=== PATIENT | male | born 1960 | race American Indian/Alaskan Native ===

== ENCOUNTER 2016-11-12 12:29 | Emergency (ER) | payer MEDICAID, OTHER ==
[2016-11-12 13:45] LABS: Basophils % (Auto) 0.9 % (0.0-1.8); Eosinophils % (Auto) 1.6 % (0.0-4.3); Hemoglobin 16.3 gm/dl (11.8-15.2); Mean Corpuscular HGB Conc 34 % (32-34); Mean Corpuscular Hemoglobin 30 pg (28-32); Mean Corpuscular Volume 87 fl (84-94); Red Cell Distribution Width 13.3 % (13.2-15.2); White Blood Count 7.8 K/mm3 (4.5-11.0)
[2016-11-12] MEDS ORDERED: ATIVAN ONE (13:45)
[2016-11-12] MEDS ORDERED: ATIVAN IV ONE (13:45)
[2016-11-12 13:54] LABS: Platelet Count 214 K/mm3 (140-440)
--- NOTE | 2016-11-12 14:13 | Cat Scan Report ---
CT HEAD WITHOUT CONTRAST: HISTORY: Altered mental. Serial contiguous axial images were obtained through the cranium. Intravenous contrast material was not administered. The ventricles are normal in size and appearance. There is no mass effect or midline shift. Chronic lacunar infarcts in the right ventura and left basal ganglia are unchanged since 11/13/15. No mass lesion is seen. No evidence for hemorrhage. The mastoid air cells and visualized portions of the sinuses are normal. IMPRESSION: No acute intracranial process. No change since 11/13/15.
[2016-11-12 14:23] LABS: Alanine Aminotransferase 37 units/L (7-56); Albumin 4.2 g/dL (3.9-5); Albumin/Globulin Ratio 1.3 %; Alkaline Phosphatase 64 units/L (35-129); Anion Gap 20 mmol/L; BUN/Creatinine Ratio 12.14; Blood Urea Nitrogen 17 mg/dL (9-20); Calcium 9.3 mg/dL (8.4-10.2); Carbon Dioxide 21 mmol/L (22-30); Chloride 99.7 mmol/L (98-107); Glucose 207 mg/dL (75-100); Potassium 3.6 mmol/L (3.6-5.0); Sodium 137 mmol/L (137-145); Total Protein 7.4 g/dL (6.3-8.2)
[2016-11-12 14:29] LABS: Urine Drugs of Abuse Note Disclamer
--- NOTE | 2016-11-12 14:35 | Emergency Department Report ---
ED Altered Mental Status HPI - General Chief Complaint: Altered Mental Status Stated Complaint: AMS Time Seen by Provider: 11/12/16 13:48 Source: EMS Mode of arrival: Stretcher Limitations: Altered Mental Status - History of Present Illness Initial Comments: 56-year-old male in an adult daycare program sent in for altered mental status. On arrival had a seizure in the emergency department. Patient has a known history of seizures and is on Keppra and Topamax. Currently denies any symptoms. States he feels fine. He does have mild headache. No fevers chills nausea vomiting. MD Complaint: altered mental status, confusion, decreased responsiveness -: Sudden Severity: moderate Consistency of Symptoms: waxing and waning Associated Symptoms: denies: denies other symptoms, chest pain, cough, malaise, nausea/vomiting - Related Data Home Medications Medication Instructions Recorded Confirmed Last Taken Albuterol Sulfate [Proventil HFA] 1 - 2 puff IH Q4H PRN 06/30/14 11/13/15 Folic Acid [Folvite] 1 mg PO QDAY 06/30/14 11/13/15 07/30/15 Magnesium Oxide [Mag-Ox] 400 mg PO QDAY 06/30/14 11/13/15 07/30/15 Pravastatin Sodium [Pravastatin] 10 mg PO QHS 06/30/14 11/13/15 07/30/15 Quetiapine Fumarate [SEROquel] 25 mg PO QHS 06/30/14 11/13/15 07/30/15 Topiramate [Topamax] 25 mg PO BID 06/30/14 11/13/15 07/30/15 amLODIPine [Norvasc] 5 mg PO DAILY 06/30/14 11/13/15 07/30/15 Aspirin [Aspirin BABY CHEW TAB] 81 mg PO QDAY 07/31/15 11/13/15 07/30/15 Carvedilol [Coreg] 6.25 mg PO BID 07/31/15 11/13/15 07/30/15 Donepezil [Aricept] 5 mg PO QHS 07/31/15 11/13/15 07/30/15 Ranitidine HCl [Zantac 150 MG TAB] 150 mg PO QDAY 07/31/15 11/13/15 07/30/15 glipiZIDE [Glucotrol] 5 mg PO BID 07/31/15 11/13/15 07/30/15 levETIRAcetam [Keppra TAB] 1,000 mg PO BID 07/31/15 11/13/15 07/30/15 Hydrochlorothiazide [HCTZ] 25 mg PO QDAY 11/13/15 11/13/15 Unknown Previous Rx's Medication Instructions Recorded Last Taken Type Ibuprofen [Motrin] 600 mg PO Q8H PRN #10 tablet 01/02/16 Unknown Rx Allergies Allergy/AdvReac Type Severity Reaction Status Date / Time No Known Allergies Allergy Verified 11/13/15 11:59 ED Review of Systems ROS: Stated complaint: AMS Other details as noted in HPI Comment: All other systems reviewed and negative Constitutional: denies: chills, fever Eyes: denies: eye pain, eye discharge, vision change ENT: denies: ear pain, throat pain Respiratory: denies: cough, shortness of breath, wheezing Cardiovascular: denies: chest pain, palpitations Endocrine: no symptoms reported Gastrointestinal: denies: abdominal pain, nausea, diarrhea Genitourinary: denies: urgency, dysuria Musculoskeletal: denies: back pain, joint swelling, arthralgia Skin: denies: rash, lesions Neurological: headache. denies: weakness, paresthesias Psychiatric: denies: anxiety, depression Hematological/Lymphatic: denies: easy bleeding, easy bruising ED Past Medical Hx - Past Medical History Previous Medical History?: Yes Hx Hypertension: Yes Hx CVA: Yes (x3) Hx Heart Attack/AMI: Yes (2010. stent x2.) Hx Congestive Heart Failure: No Hx Diabetes: Yes Hx Seizures: Yes Hx Asthma: (pt denies) Hx COPD: No Additional medical history: CAD - Surgical History Past Surgical History?: Yes Hx Coronary Stent: Yes (X 2) Additional Surgical History: ABD SURGERY CHILD - Family History Family history: no significant - Social History Smoking Status: Unknown if ever smoked - Medications Home Medications: Home Medications Medication Instructions Recorded Confirmed Last Taken Type Albuterol Sulfate [Proventil HFA] 1 - 2 puff IH Q4H PRN 06/30/14 11/13/15 History Folic Acid [Folvite] 1 mg PO QDAY 06/30/14 11/13/15 07/30/15 History Magnesium Oxide [Mag-Ox] 400 mg PO QDAY 06/30/14 11/13/15 07/30/15 History Pravastatin Sodium [Pravastatin] 10 mg PO QHS 06/30/14 11/13/15 07/30/15 History Quetiapine Fumarate [SEROquel] 25 mg PO QHS 06/30/14 11/13/15 07/30/15 History Topiramate [Topamax] 25 mg PO BID 06/30/14 11/13/15 07/30/15 History amLODIPine [Norvasc] 5 mg PO DAILY 06/30/14 11/13/15 07/30/15 History Aspirin [Aspirin BABY CHEW TAB] 81 mg PO QDAY 07/31/15 11/13/15 07/30/15 History Carvedilol [Coreg] 6.25 mg PO BID 07/31/15 11/13/15 07/30/15 History Donepezil [Aricept] 5 mg PO QHS 07/31/15 11/13/15 07/30/15 History Ranitidine HCl [Zantac 150 MG TAB] 150 mg PO QDAY 07/31/15 11/13/15 07/30/15 History glipiZIDE [Glucotrol] 5 mg PO BID 07/31/15 11/13/15 07/30/15 History levETIRAcetam [Keppra TAB] 1,000 mg PO BID 07/31/15 11/13/15 07/30/15 History Hydrochlorothiazide [HCTZ] 25 mg PO QDAY 11/13/15 11/13/15 Unknown History Ibuprofen [Motrin] 600 mg PO Q8H PRN #10 tablet 01/02/16 Unknown Rx ED Physical Exam - General Limitations: Altered Mental Status General appearance: alert, in no apparent distress - Head Head exam: Present: atraumatic, normocephalic - Eye Eye exam: Present: normal appearance, PERRL, EOMI - ENT ENT exam: Present: mucous membranes moist - Neck Neck exam: Present: normal inspection. Absent: tenderness, meningismus - Respiratory Respiratory exam: Present: normal lung sounds bilaterally. Absent: respiratory distress, wheezes, rales, rhonchi - Cardiovascular Cardiovascular Exam: Present: regular rate, normal rhythm. Absent: systolic murmur, diastolic murmur, rubs, gallop - GI/Abdominal GI/Abdominal exam: Present: soft, normal bowel sounds. Absent: distended, tenderness, guarding, rebound - Rectal Rectal exam: Present: deferred - Extremities Exam Extremities exam: Present: normal inspection - Back Exam Back exam: Present: normal inspection - Neurological Exam Neurological exam: Present: alert, oriented X3. Absent: motor sensory deficit - Psychiatric Psychiatric exam: Present: normal affect, normal mood - Skin Skin exam: Present: warm, dry, intact, normal color. Absent: rash ED Course Vital Signs 11/12/16 11/12/16 11/12/16 13:28 13:29 13:30 Pulse Rate Respiratory Rate Blood Pressure 116/82 116/82 O2 Sat by Pulse 91 93 93 Oximetry 11/12/16 11/12/16 11/12/16 13:31 13:35 13:37 Pulse Rate 67 Respiratory 26 H Rate Blood Pressure 116/82 116/82 116/82 O2 Sat by Pulse 94 97 96 Oximetry 11/12/16 11/12/16 11/12/16 13:39 13:41 13:43 Pulse Rate 52 L 65 63 Respiratory 13 14 12 Rate Blood Pressure 116/82 116/82 116/82 O2 Sat by Pulse 98 97 98 Oximetry 11/12/16 11/12/16 11/12/16 13:45 13:46 13:47 Pulse Rate 68 67 65 Respiratory 19 25 H 18 Rate Blood Pressure 115/87 115/87 115/87 O2 Sat by Pulse 96 96 97 Oximetry 11/12/16 11/12/16 11/12/16 13:49 13:50 13:51 Pulse Rate 69 71 64 Respiratory 18 17 14 Rate Blood Pressure 119/89 119/89 119/89 O2 Sat by Pulse 97 97 94 Oximetry 11/12/16 11/12/16 11/12/16 13:52 14:01 14:03 Pulse Rate 65 66 70 Respiratory 19 19 Rate Blood Pressure 119/89 119/89 114/79 O2 Sat by Pulse 97 97 Oximetry 11/12/16 11/12/16 11/12/16 14:04 14:05 14:07 Pulse Rate 73 71 69 Respiratory 14 17 16 Rate Blood Pressure 114/79 105/77 105/77 O2 Sat by Pulse 97 97 97 Oximetry 11/12/16 11/12/16 11/12/16 14:09 14:10 14:11 Pulse Rate 69 67 63 Respiratory 14 14 14 Rate Blood Pressure 98/71 98/71 98/71 O2 Sat by Pulse 96 96 98 Oximetry 11/12/16 11/12/16 11/12/16 14:13 14:15 14:17 Pulse Rate 59 L 60 72 Respiratory 16 11 L 14 Rate Blood Pressure 98/71 100/74 100/74 O2 Sat by Pulse 96 96 96 Oximetry 11/12/16 11/12/16 11/12/16 14:19 14:20 14:25 Pulse Rate 61 57 L 60 Respiratory 14 17 19 Rate Blood Pressure 100/74 104/76 102/77 O2 Sat by Pulse 95 96 98 Oximetry 11/12/16 11/12/16 11/12/16 14:31 14:35 14:41 Pulse Rate 68 66 59 L Respiratory 20 15 19 Rate Blood Pressure 102/77 102/77 111/78 O2 Sat by Pulse 98 98 97 Oximetry 11/12/16 11/12/16 11/12/16 14:45 14:50 14:55 Pulse Rate 76 75 68 Respiratory 15 16 14 Rate Blood Pressure 114/87 113/80 118/84 O2 Sat by Pulse 94 94 93 Oximetry 11/12/16 11/12/16 11/12/16 15:01 15:05 15:07 Pulse Rate 68 64 66 Respiratory 18 17 18 Rate Blood Pressure 109/84 113/81 113/81 O2 Sat by Pulse 94 97 96 Oximetry 11/12/16 11/12/16 11/12/16 15:09 15:10 15:11 Pulse Rate 73 61 63 Respiratory 19 17 17 Rate Blood Pressure 118/84 109/82 109/82 O2 Sat by Pulse 97 97 97 Oximetry 11/12/16 11/12/16 11/12/16 15:13 15:15 15:17 Pulse Rate 64 81 76 Respiratory 17 19 20 Rate Blood Pressure 109/82 110/83 110/83 O2 Sat by Pulse 96 96 98 Oximetry 11/12/16 11/12/16 11/12/16 15:19 15:20 15:21 Pulse Rate 73 63 69 Respiratory 19 15 12 Rate Blood Pressure 110/83 110/79 110/79 O2 Sat by Pulse 96 97 97 Oximetry 11/12/16 11/12/16 11/12/16 15:23 15:25 15:27 Pulse Rate 73 67 69 Respiratory 18 18 16 Rate Blood Pressure 110/79 110/79 110/79 O2 Sat by Pulse 96 96 98 Oximetry 11/12/16 11/12/16 11/12/16 15:29 15:31 15:33 Pulse Rate 75 Respiratory 20 25 H 17 Rate Blood Pressure 110/79 110/79 110/79 O2 Sat by Pulse 98 97 94 Oximetry 11/12/16 11/12/16 15:35 15:36 Pulse Rate Respiratory 14 14 Rate Blood Pressure 118/83 118/83 O2 Sat by Pulse 97 97 Oximetry - Lab Data Result diagrams: 11/12/16 13:16 11/12/16 13:50 Lab Results 11/12/16 11/12/16 11/12/16 Range/Units 13:16 13:16 13:16 WBC 7.8 (4.5-11.0) K/mm3 RBC 5.50 H (3.65-5.03) M/mm3 Hgb 16.3 H (11.8-15.2) gm/dl Hct 48.0 H (35.5-45.6) % MCV 87 (84-94) fl MCH 30 (28-32) pg MCHC 34 (32-34) % RDW 13.3 (13.2-15.2) % Plt Count 214 (140-440) K/mm3 Lymph % (Auto) 41.5 H (13.4-35.0) % Stewart % (Auto) 12.0 H (0.0-7.3) % Eos % (Auto) 1.6 (0.0-4.3) % Baso % (Auto) 0.9 (0.0-1.8) % Lymph # 3.2 (1.2-5.4) K/mm3 Stewart # 0.9 H (0.0-0.8) K/mm3 Eos # 0.1 (0.0-0.4) K/mm3 Baso # 0.1 (0.0-0.1) K/mm3 Seg Neutrophils % 44.0 (40.0-70.0) % Seg Neutrophils # 3.4 (1.8-7.7) K/mm3 Sodium (137-145) mmol/L Potassium (3.6-5.0) mmol/L Chloride (98-107) mmol/L Carbon Dioxide (22-30) mmol/L Anion Gap mmol/L BUN (9-20) mg/dL Creatinine (0.8-1.5) mg/dL Estimated GFR ml/min BUN/Creatinine Ratio % Glucose (75-100) mg/dL Lactic Acid 2.00 (0.7-2.0) mmol/L Calcium (8.4-10.2) mg/dL Magnesium (1.7-2.3) mg/dL Total Bilirubin (0.1-1.2) mg/dL AST (5-40) units/L ALT (7-56) units/L Alkaline Phosphatase (35-129) units/L Total Protein (6.3-8.2) g/dL Albumin (3.9-5) g/dL Albumin/Globulin Ratio % TSH 1.290 (0.270-4.200) mlU/mL Urine Color (Yellow) Urine Turbidity (Clear) Urine pH (5.0-7.0) Ur Specific [place] (1.003-1.030) Urine Protein (Negative) mg/dL Urine Glucose (UA) (Negative) mg/dL Urine Ketones (Negative) mg/dL Urine Blood (Negative) Urine Nitrite (Negative) Urine Bilirubin (Negative) Urine Urobilinogen (<2.0) mg/dL Ur Leukocyte Esterase (Negative) Urine WBC (Auto) (0.0-6.0) /HPF Urine RBC (Auto) (0.0-6.0) /HPF Urine Mucus /HPF Salicylates (2.8-20.0) mg/dL Urine Opiates Screen Urine Methadone Screen Acetaminophen (10.0-30.0) ug/mL Ur Barbiturates Screen Ur Phencyclidine Scrn Ur Amphetamines Screen U Benzodiazepines Scrn Urine Cocaine Screen U Marijuana (THC) Screen Drugs of Abuse Note Plasma/Serum Alcohol (0-0.07) gm% 11/12/16 11/12/16 11/12/16 Range/Units 13:16 13:16 13:16 WBC (4.5-11.0) K/mm3 RBC (3.65-5.03) M/mm3 Hgb (11.8-15.2) gm/dl Hct (35.5-45.6) % MCV (84-94) fl MCH (28-32) pg MCHC (32-34) % RDW (13.2-15.2) % Plt Count (140-440) K/mm3 Lymph % (Auto) (13.4-35.0) % Stewart % (Auto) (0.0-7.3) % Eos % (Auto) (0.0-4.3) % Baso % (Auto) (0.0-1.8) % Lymph # (1.2-5.4) K/mm3 Stewart # (0.0-0.8) K/mm3 Eos # (0.0-0.4) K/mm3 Baso # (0.0-0.1) K/mm3 Seg Neutrophils % (40.0-70.0) % Seg Neutrophils # (1.8-7.7) K/mm3 Sodium (137-145) mmol/L Potassium (3.6-5.0) mmol/L Chloride (98-107) mmol/L Carbon Dioxide (22-30) mmol/L Anion Gap mmol/L BUN (9-20) mg/dL Creatinine (0.8-1.5) mg/dL Estimated GFR ml/min BUN/Creatinine Ratio % Glucose (75-100) mg/dL Lactic Acid (0.7-2.0) mmol/L Calcium (8.4-10.2) mg/dL Magnesium (1.7-2.3) mg/dL Total Bilirubin (0.1-1.2) mg/dL AST (5-40) units/L ALT (7-56) units/L Alkaline Phosphatase (35-129) units/L Total Protein (6.3-8.2) g/dL Albumin (3.9-5) g/dL Albumin/Globulin Ratio % TSH (0.270-4.200) mlU/mL Urine Color (Yellow) Urine Turbidity (Clear) Urine pH (5.0-7.0) Ur Specific [place] (1.003-1.030) Urine Protein (Negative) mg/dL Urine Glucose (UA) (Negative) mg/dL Urine Ketones (Negative) mg/dL Urine Blood (Negative) Urine Nitrite (Negative) Urine Bilirubin (Negative) Urine Urobilinogen (<2.0) mg/dL Ur Leukocyte Esterase (Negative) Urine WBC (Auto) (0.0-6.0) /HPF Urine RBC (Auto) (0.0-6.0) /HPF Urine Mucus /HPF Salicylates < 0.3 L (2.8-20.0) mg/dL Urine Opiates Screen Urine Methadone Screen Acetaminophen < 15.0 (10.0-30.0) ug/mL Ur Barbiturates Screen Ur Phencyclidine Scrn Ur Amphetamines Screen U Benzodiazepines Scrn Urine Cocaine Screen U Marijuana (THC) Screen Drugs of Abuse Note Plasma/Serum Alcohol < 0.01 (0-0.07) gm% 11/12/16 11/12/16 11/12/16 Range/Units 13:50 14:18 14:26 WBC (4.5-11.0) K/mm3 RBC (3.65-5.03) M/mm3 Hgb (11.8-15.2) gm/dl Hct (35.5-45.6) % MCV (84-94) fl MCH (28-32) pg MCHC (32-34) % RDW (13.2-15.2) % Plt Count (140-440) K/mm3 Lymph % (Auto) (13.4-35.0) % Stewart % (Auto) (0.0-7.3) % Eos % (Auto) (0.0-4.3) % Baso % (Auto) (0.0-1.8) % Lymph # (1.2-5.4) K/mm3 Stewart # (0.0-0.8) K/mm3 Eos # (0.0-0.4) K/mm3 Baso # (0.0-0.1) K/mm3 Seg Neutrophils % (40.0-70.0) % Seg Neutrophils # (1.8-7.7) K/mm3 Sodium 137 (137-145) mmol/L Potassium 3.6 (3.6-5.0) mmol/L Chloride 99.7 (98-107) mmol/L Carbon Dioxide 21 L (22-30) mmol/L Anion Gap 20 mmol/L BUN 17 (9-20) mg/dL Creatinine 1.4 (0.8-1.5) mg/dL Estimated GFR > 60 ml/min BUN/Creatinine Ratio 12.14 % Glucose 207 H (75-100) mg/dL Lactic Acid (0.7-2.0) mmol/L Calcium 9.3 (8.4-10.2) mg/dL Magnesium 2.20 (1.7-2.3) mg/dL Total Bilirubin 0.70 (0.1-1.2) mg/dL AST 38 (5-40) units/L ALT 37 (7-56) units/L Alkaline Phosphatase 64 (35-129) units/L Total Protein 7.4 (6.3-8.2) g/dL Albumin 4.2 (3.9-5) g/dL Albumin/Globulin Ratio 1.3 % TSH (0.270-4.200) mlU/mL Urine Color Yellow (Yellow) Urine Turbidity Clear (Clear) Urine pH 6.0 (5.0-7.0) Ur Specific [place] 1.017 (1.003-1.030) Urine Protein <15 mg/dl (Negative) mg/dL Urine Glucose (UA) >=500 (Negative) mg/dL Urine Ketones Neg (Negative) mg/dL Urine Blood Sm (Negative) Urine Nitrite Neg (Negative) Urine Bilirubin Neg (Negative) Urine Urobilinogen < 2.0 (<2.0) mg/dL Ur Leukocyte Esterase Neg (Negative) Urine WBC (Auto) < 1.0 (0.0-6.0) /HPF Urine RBC (Auto) 2.0 (0.0-6.0) /HPF Urine Mucus Few /HPF Salicylates (2.8-20.0) mg/dL Urine Opiates Screen Presumptive negative Urine Methadone Screen Presumptive negative Acetaminophen (10.0-30.0) ug/mL Ur Barbiturates Screen Presumptive negative Ur Phencyclidine Scrn Presumptive negative Ur Amphetamines Screen Presumptive negative U Benzodiazepines Scrn Presumptive negative Urine Cocaine Screen Presumptive negative U Marijuana (THC) Screen Presumptive negative Drugs of Abuse Note Disclamer Plasma/Serum Alcohol (0-0.07) gm% 11/12/ Range/Units 14:33 WBC (4.5-11.0) K/mm3 RBC (3.65-5.03) M/mm3 Hgb (11.8-15.2) gm/dl Hct (35.5-45.6) % MCV (84-94) fl MCH (28-32) pg MCHC (32-34) % RDW (13.2-15.2) % Plt Count (140-440) K/mm3 Lymph % (Auto) (13.4-35.0) % Stewart % (Auto) (0.0-7.3) % Eos % (Auto) (0.0-4.3) % Baso % (Auto) (0.0-1.8) % Lymph # (1.2-5.4) K/mm3 Stewart # (0.0-0.8) K/mm3 Eos # (0.0-0.4) K/mm3 Baso # (0.0-0.1) K/mm3 Seg Neutrophils % (40.0-70.0) % Seg Neutrophils # (1.8-7.7) K/mm3 Sodium (137-145) mmol/L Potassium (3.6-5.0) mmol/L Chloride (98-107) mmol/L Carbon Dioxide (22-30) mmol/L Anion Gap mmol/L BUN (9-20) mg/dL Creatinine (0.8-1.5) mg/dL Estimated GFR ml/min BUN/Creatinine Ratio % Glucose (75-100) mg/dL Lactic Acid 1.70 (0.7-2.0) mmol/L Calcium (8.4-10.2) mg/dL Magnesium (1.7-2.3) mg/dL Total Bilirubin (0.1-1.2) mg/dL AST (5-40) units/L ALT (7-56) units/L Alkaline Phosphatase (35-129) units/L Total Protein (6.3-8.2) g/dL Albumin (3.9-5) g/dL Albumin/Globulin Ratio % TSH (0.270-4.200) mlU/mL Urine Color (Yellow) Urine Turbidity (Clear) Urine pH (5.0-7.0) Ur Specific [place] (1.003-1.030) Urine Protein (Negative) mg/dL Urine Glucose (UA) (Negative) mg/dL Urine Ketones (Negative) mg/dL Urine Blood (Negative) Urine Nitrite (Negative) Urine Bilirubin (Negative) Urine Urobilinogen (<2.0) mg/dL Ur Leukocyte Esterase (Negative) Urine WBC (Auto) (0.0-6.0) /HPF Urine RBC (Auto) (0.0-6.0) /HPF Urine Mucus /HPF Salicylates (2.8-20.0) mg/dL Urine Opiates Screen Urine Methadone Screen Acetaminophen (10.0-30.0) ug/mL Ur Barbiturates Screen Ur Phencyclidine Scrn Ur Amphetamines Screen U Benzodiazepines Scrn Urine Cocaine Screen U Marijuana (THC) Screen Drugs of Abuse Note Plasma/Serum Alcohol (0-0.07) gm% - Medical Decision Making 56-year-old male in adult daycare with known history of seizure here with seizure and altered mental status. Patient denies any complaints other than headache at this point. No fevers chills nausea vomiting. No chest pain abdominal pain. CT without significant change. Patient had a seizure in the emergency department. He was administered 2 mg of IV Ativan. Plan to give him 1000 mg of IV Keppra. Patient appears to be back to baseline. Plan to discharge home to adult daycare. Labs unremarkable. Portions of this chart were dictated with dictation software. There may be dictation errors contained within this note. Critical care attestation.: If time is entered above; I have spent that time in minutes in the direct care of this critically ill patient, excluding procedure time. ED Disposition Clinical Impression: Seizure Disposition: DC-01 TO HOME OR SELFCARE Is pt being admited?: No Condition: Stable Instructions: Recurrent Seizures Adult (ED) Referrals: PRIMARY CARE, [Primary Care Provider] - 3-5 Days
[2016-11-12] MEDS ORDERED: KEPPRA 1,000 MG in D5W 100 ML IV ONE (14:36)
[2016-11-12 14:51] LABS: Bilirubin,Urine NEG (Negative); Blood,Urine SM (Negative); Ketones,Urine NEG (Negative); Leukocyte Esterase,Urine NEG (Negative); Mucus,Urine FEW /HPF; Nitrite,Urine NEG (Negative); Protein,Urine <15 mg/dL mg/dL (Negative); Urobilinogen,Urine < 2.0 mg/dL (<2.0); WBC,Urine < 1.0 /HPF (0.0-6.0)
[2016-11-12] MEDS ORDERED: KEPPRA 1,000 MG/NS 0.75% 100ML 1,000 MG/100 ML BAG IV ONE (15:00)
[2016-11-12 18:23] VITALS: BP 90/63
== END 2016-11-12 18:25 | disposition home or self-care (01) ==
LOC: ED 12:29
DX: R56.9 Unspecified convulsions (principal); I10 Essential (primary) hypertension; I25.2 Old myocardial infarction; E11.9 Type 2 diabetes mellitus without complications; Z86.73 Personal history of transient ischemic attack (TIA), and cerebral infarction without residual deficits; Z95.1 Presence of aortocoronary bypass graft; Z79.82 Long term (current) use of aspirin
CPT/HCPCS: 36415; 70450; 80053; 80307; 81001; 82140; 83735; 84443; 85025; 93005; 93010; 96365; 96375; 99285; G0480; J1953; J2060; 80320